=== PATIENT | female | born 1985 | race Caucasian/White ===

== ENCOUNTER 2017-04-06 07:28 | Inpatient (IN) | payer OTHER ==
[~2017-04-06] VITALS: Ht 170.2 cm; Wt 112.5 kg
[2017-04-06] VITALS (14 sets, daily range): BP systolic 111–140; BP diastolic 69–85
[2017-04-06 09:59] LABS: EOSINOPHIL (%) 0.3 % (0-5); HEMATOCRIT 36.1 % (36.0-46.0); IMMATURE GRANULOCYTE (%) 0.5 % (0.0-0.7); INSTRUMENT ABS NEUTROPHIL CT 5.7 K/uL; LYMPHOCYTE COUNT 1.6 K/uL (1.0-2.8); MCH 26.8 PG (29.0-34.0); MCHC 32.4 G/DL (30.0-36.0); MCV 82.8 FL (83-99); MEAN PLAT.VOLUME 11.5 uM^3 (9.5-12.4); MONOCYTE (%) 6.2 % (3-12); MONOCYTE COUNT 0.5 K/uL (0-0.8); NEUTROPHIL COUNT 5.7 K/uL (1.8-6.4); PLATELET COUNT 215 K/uL (156-360); RBC DIS.WIDTH-CV 14.1 % (11.8-14.6); RBC DIS.WIDTH-SD 42.3 % (39-53); RED BLOOD COUNT 4.36 M/uL (3.80-5.20); WHITE BLOOD COUNT 7.9 K/uL (4.1-10.2)
[2017-04-07] VITALS (30 sets, daily range): BP systolic 98–148; BP diastolic 46–79
[2017-04-08] VITALS (8 sets, daily range): BP systolic 94–129; BP diastolic 56–73
[2017-04-08 07:18] LABS: EOSINOPHIL (%) 0 % (0-5); HEMATOCRIT 30.3 % (36.0-46.0); IMMATURE GRANULOCYTE (%) 0.8 % (0.0-0.7); IMMATURE GRANULOCYTE COUNT 0.1 K/uL; INSTRUMENT ABS NEUTROPHIL CT 11.1 K/uL; LYMPHOCYTE COUNT 1.1 K/uL (1.0-2.8); MCHC 31.7 G/DL (30.0-36.0); MCV 85.1 FL (83-99); MEAN PLAT.VOLUME 12.1 uM^3 (9.5-12.4); MONOCYTE (%) 5.2 % (3-12); MONOCYTE COUNT 0.7 K/uL (0-0.8); NEUTROPHIL (%) 85.4 % (45-76); NEUTROPHIL COUNT 11.1 K/uL (1.8-6.4); PLATELET COUNT 197 K/uL (156-360); RBC DIS.WIDTH-CV 14.4 % (11.8-14.6); RBC DIS.WIDTH-SD 44.3 % (39-53); RED BLOOD COUNT 3.56 M/uL (3.80-5.20)
[2017-04-09 02:07] VITALS: BP 121/67
[2017-04-09 06:57] VITALS: BP 113/70
[2017-04-09 10:37] VITALS: BP 113/68
[2017-04-09 14:46] VITALS: BP 110/65
[2017-04-10 07:16] VITALS: BP 116/67
[2017-04-10 15:47] VITALS: BP 138/67
[2017-04-10 22:27] VITALS: BP 104/56
[2017-04-11 02:49] VITALS: BP 125/69
[2017-04-11 07:30] VITALS: BP 122/66
[2017-04-11] MEDS ORDERED: ENDOCET 5-3251 EACH PO (09:26)
[2017-04-11] MEDS ORDERED: CHROMAGEN,1 CAPSULE PO (09:26)
[2017-04-11] MEDS ORDERED: IBUPROFEN800 MG PO (09:26)
[2017-04-11 11:19] VITALS: BP 115/70
== END 2017-04-11 18:35 | disposition home or self-care (01) | DRG 765 ==
LOC: LDRP-OP 07:28 → 2WEST 07:29 → LDRP-OP 08:50 → 2WEST 04-07 20:23 → LDRP-OP 05-04 14:13
PROVIDERS: Advanced Practice Midwife; Obstetrics & Gynecology
PROC: 3E0P7GC Introduction of Other Therapeutic Substance into Female Reproductive, Via Natural or Artificial Opening (ICD-10-PCS; 2017-04-05)
PROC: 10D00Z1 Extraction of Products of Conception, Low, Open Approach (ICD-10-PCS; principal; 2017-04-06)
DX: O48.0 Post-term pregnancy (principal); Z37.0 Single live birth; Z3A.40 40 weeks gestation of pregnancy; Z68.38 Body mass index [BMI] 38.0-38.9, adult; O99.02 Anemia complicating childbirth; O99.214 Obesity complicating childbirth; O77.0 Labor and delivery complicated by meconium in amniotic fluid; D62 Acute posthemorrhagic anemia; E28.2 Polycystic ovarian syndrome; E66.9 Obesity, unspecified; K58.9 Irritable bowel syndrome, unspecified; O64.0XX0 Obstructed labor due to incomplete rotation of fetal head, not applicable or unspecified; O99.62 Diseases of the digestive system complicating childbirth; O61.0 Failed medical induction of labor; O63.1 Prolonged second stage (of labor); Z82.49 Family history of ischemic heart disease and other diseases of the circulatory system; Z87.891 Personal history of nicotine dependence; Z83.3 Family history of diabetes mellitus
CPT/HCPCS: 85025; 86900; 86901; C1726; C1755; G0378; J0131; J0595; J0690; J2274; J2550; J2765; J2795; J3010; J7120